=== PATIENT | female | born 1970 | race Two or more races ===

== ENCOUNTER 2020-12-12 11:50 | Emergency (ER) | payer MEDICAID, OTHER ==
[~2020-12-12] VITALS: Ht 154.9 cm; Wt 113.4 kg
[2020-12-12] MEDS ORDERED: SILVER SULFADIAZINE 1 % TOPICAL CREAM 50GM TOP ONE (13:00)
[2020-12-12] MEDS ORDERED: KETOROLAC TROMETH 60MG/2ML VIAL IM ONE (13:00)
[2020-12-12 13:30] VITALS: BP 121/66
== END 2020-12-12 13:32 | disposition home or self-care (01) ==
LOC: ER 11:50
DX: T24.212A Burn of second degree of left thigh, initial encounter (principal); E11.9 Type 2 diabetes mellitus without complications; E78.5 Hyperlipidemia, unspecified; I10 Essential (primary) hypertension; X19.XXXA Contact with other heat and hot substances, initial encounter; Y93.89 Activity, other specified; Y92.89 Other specified places as the place of occurrence of the external cause; Y99.8 Other external cause status
CPT/HCPCS: 96372; 99283; J1885

== ENCOUNTER 2020-12-12 14:22 | Emergency (ER) | payer MEDICAID ==
[~2020-12-12] VITALS: Ht 157.5 cm; Wt 108.9 kg
[2020-12-12] MEDS ORDERED: EPINEPHrine HCL 1 MG/1 ML AMP SC ONE (14:45)
[2020-12-12 15:11] VITALS: BP 99/53
== END 2020-12-12 15:49 | disposition home or self-care (01) ==
LOC: ER 14:22
DX: L23.9 Allergic contact dermatitis, unspecified cause (principal); E11.9 Type 2 diabetes mellitus without complications; E78.5 Hyperlipidemia, unspecified; I10 Essential (primary) hypertension; Z88.6 Allergy status to analgesic agent
CPT/HCPCS: 96372; 99283; J0171

== ENCOUNTER 2020-12-14 12:51 | Emergency (ER) | payer MEDICAID ==
[~2020-12-14] VITALS: Ht 154.9 cm; Wt 108.9 kg
[2020-12-14] MEDS ORDERED: ONDANSETRON ODT 4 MG TAB PO ONE (15:00)
[2020-12-14] MEDS ORDERED: ACETAMINOPHEN/CODEINE#3 (300/30mg) TAB PO ONE (15:00)
[2020-12-14 15:29] VITALS: BP 117/61
[2020-12-14] MEDS ORDERED: HYDROcodone-ACET 5/325MG TAB PO ONE ×2 (16:00→20:00)
[2020-12-14] MEDS ORDERED: cefTRIAXone 1GM/50ML D5W 50 ML IV ONE (17:00)
[2020-12-14] MEDS ORDERED: CLINDAMYCIN 900MG IV 50 ML IV ONE (17:00)
[2020-12-14] MEDS ORDERED: SILVER SULFADIAZINE 1 % TOPICAL CREAM 50GM TOP ONE (19:30)
== END 2020-12-14 20:15 | disposition home or self-care (01) ==
LOC: ER 12:51
DX: T24.212D Burn of second degree of left thigh, subsequent encounter (principal); E11.9 Type 2 diabetes mellitus without complications; E78.5 Hyperlipidemia, unspecified; I10 Essential (primary) hypertension; X08.8XXD Exposure to other specified smoke, fire and flames, subsequent encounter
CPT/HCPCS: 96365; 96366; 96367; 99284; J0696; J3490; Q0162